=== PATIENT | female | born 1945 | race Caucasian/White ===

== ENCOUNTER 2025-03-04 11:10 | Emergency (ER) | payer MEDICARE ==
[2025-03-04] MEDS ORDERED: Sodium Chloride 0.9% 10 ML Syringe FLUSH PRN (11:28)
[2025-03-04] MEDS: Metoprolol Tartrate 5 MG/5 ML SDV IVPUSH ONE (11:55)
[2025-03-04 12:07] LABS: BASOPHILS ABSOLUTE AUTO 0.0 x10-3/uL (0.0-0.1); BASOPHILS PERCENT AUTO 0.8 % (0.2-1.5); EOSINOPHILS ABSOLUTE AUTO 0.0 x10-3/uL (0.0-0.8); EOSINOPHILS PERCENT AUTO 0.1 % (0.6-8.1); LYMPHOCYTES ABSOLUTE AUTO 0.6 x10-3/uL (1.0-4.4); LYMPHOCYTES PERCENT AUTO 25.0 % (18.4-52.1); MEAN PLATELET VOLUME 9.6 fL (7.1-12.4); MONOCYTES ABSOLUTE AUTO 0.3 x10-3/uL (0.3-1.0); MONOCYTES PERCENT AUTO 12.3 % (4.4-15.7); NEUTROPHILS ABSOLUTE AUTO 1.5 x10-3/uL (1.5-6.3); NEUTROPHILS PERCENT AUTO 61.8 % (30.8-76.2); PLATELET COUNT,PLT 207 x10(3)uL (151-488); RED BLOOD CELL COUNT 4.49 x10(6)uL (3.60-5.20); RED CELL DISTRIBUTION WIDTH 12.5 % (12.3-16.5); WHITE BLOOD CELL COUNT,WBC 2.4 x10-3/uL (3.0-10.3)
[2025-03-04 12:17] LABS: A/G RATIO 0.9; ALANINE AMINOTRANSFERASE,ALT 18 U/L (12-36); ASPARTATE AMNIOTRANSFERASE,AST 23 IU/L (5-25); BILIRUBIN TOTAL 0.8 mg/dL (0.1-1.3); BLOOD UREA NITROGEN,BUN 10 mg/dL (7-18); CARBON DIOXIDE,CO2 28 mmol/L (21-32); CREATININE 0.8 mg/dL (0.55-1.02); EST CRCL DRUG DOSING (CG) 53.38 mL/min; ESTIMATED GFR 75 mL/min (>60); GLUCOSE RANDOM 138 mg/dL (80-116); PROTEIN TOTAL,TP 7.7 g/dL (6.0-8.0); SODIUM,NA 128 mmol/L (135-145)
[2025-03-04 12:20] LABS: LACTIC ACID 1.6 mmol/L (0.4-2.0)
[2025-03-04 12:24] LABS: POTASSIUM,K 2.7 mmol/L (3.5-5.3)
[2025-03-04 12:25] LABS: CHLORIDE,CL 88 mmol/L (100-110)
[2025-03-04] MEDS: Magnesium Sulfate 2 GM/50 mL 2 GM in Premix Bag 1 BAG IV ONE (12:37)
[2025-03-04] MEDS: Potassium Chloride 20 MEQ Tab.ER PO ONE (12:38)
[2025-03-04] MEDS: CALCIUM GLUC IN NACL, ISO-OSM 2,000 MG in Premix Bag 1 BAG IV ONE (13:52)
== END 2025-03-04 15:17 | disposition home or self-care (01) ==
LOC: FB.ED 11:10
DX: I48.91 Unspecified atrial fibrillation (principal); E87.6 Hypokalemia; E83.42 Hypomagnesemia; E83.51 Hypocalcemia; E86.0 Dehydration; I10 Essential (primary) hypertension
CPT/HCPCS: 36415; 80053; 83605; 83735; 84484; 85025; 86140; 93005; 93010; 96365; 96367; 96375; 99284; 99284-25; A9270-GY; J0612; J0616; J3475; J7030